=== PATIENT | female | born 1985 | race Caucasian/White ===

== ENCOUNTER 2020-09-18 16:30 | Emergency (ER) | payer SELFPAY ==
[2020-09-18 17:04] VITALS: BP 110/66; PULSE 72; RESP 20; TEMP 36.6; O2SAT 100
--- NOTE | 2020-09-18 17:16 | ED.FEMALEGU ---
HPI - Female Genitourinary General Chief complaint: Urogenital-Female Stated complaint: uti Time Seen by Provider: 09/18/20 17:18 Source: patient and RN notes reviewed Mode of arrival: ambulatory Limitations: no limitations History of Present Illness HPI Narrative: 35 year old female who presents to [facility] care with complaints of burning, pain, urgency, perineal and suprapubic pressure with strong urine odor which started this morning. Patient denies any known fevers, chills or sweats, denies any nausea or vomiting or diarrhea. Patient has some lower abdomen and perineal pressure, denies any flank pain. Patient denies any perineal discharge or any itchy. MD elicited complaint: dysuria, UTI and other (perineal pressure) Pertinent past history: other (past UTI's) Onset (ago): day(s) (1) Location of symptoms: perineum Severity: moderate Female Urogenital Radiation: Non-Radiating Severity scale (1-10): 5 Quality of pain: cramping and dull Consistency: constant Vaginal discharge: none Vaginal bleeding: none Urinary symptoms: Dysuria Associated symptoms: abdominal pain (lower abdomen and perineal pressure) Sexual activity: No Patient : No Date of Last Menstrual Period: 09/12/20 Related Data Allergies Allergy/AdvReac Type Severity Reaction Status Date / Time amoxicillin Allergy Unknown RASH Verified 12/16/18 12:23 Review of Systems Review of Systems: Narrative: CONSTITUTIONAL: Denies fever, chills, or sweats. EYES: Denies visual changes, redness, or discharge. ENT: Denies rhinorrhea, congestion, sore throat, or otalgia. CARDIOVASCULAR: Denies chest pain, palpitations, or edema. RESPIRATORY: Denies cough or dyspnea. GASTROINTESTINAL:Reports lower abdomen and perineal pressure,no nausea, vomiting, or diarrhea. GENITOURINARY: Positive dysuria or hematuria. SKIN: Denies rash or itching. MUSCULOSKELETAL: Denies back pain, joint pain, or myalgia. NEUROLOGIC: Denies headache, numbness, or weakness. PSYCHIATRIC: Denies anxiety or depression. All systems reviewed & are unremarkable except as noted in HPI and below PMFSH Past Medical History Medical History (Updated 09/19/20 @ 16:10 by Deepali Boland NP) Gestational diabetes Pancreatitis UTI (urinary tract infection) Surgical History Surgical History (Updated 09/18/20 @ 17:29 by Deepali Boland NP) Previous section x2 Family History Family History Mother COPD (chronic obstructive pulmonary disease) case management patient Father Hypertension Grandparent FH: stomach cancer Sibling Endometriosis Social History Social History (Updated 09/18/20 @ 17:31 by Deepali Boland NP) Smoking status: Former smoker Alcohol intake: current Alcohol use details: RARE Substance use: never Living arrangements: with family Gender identity (if verbalized by the patient): Female Comments At time of signature, agree with nursing past medical, surgical, social and family history. There is no relevant family history pertinent to the presenting complaint Exam Narrative: Exam Narrative: GENERAL: Well-appearing, well-nourished, and in no acute distress. HEAD: Normocephalic, atraumatic. EYES: PERRLA and EOMI. ENT: Nares clear, no rhinorrhea or epistaxis. Mucous membranes moist.TM's normal with good light reflex, throat pink with no lesions or exudates or tonsil enlargement NECK: Supple.no lymphadenopathy CHEST: Clear to auscultation. No respiratory distress.SAO2 100% on room air HEART: Regular rate and rhythm. No murmur heard. Normal peripheral pulses. ABDOMEN: Soft, tender suprapubic area of abdomen, negative McBurney point tenderness, nondistended, normal active bowel sounds.No flank pain on exam. EXTREMITIES: Normal range of motion. No edema. SKIN: Warm, dry, no rash. NEURO: No focal deficits. Alert and oriented x3. Course Vital Signs Vital signs: Vital Signs Temperature 36.6 C 04
== END 2020-09-18 17:45 | disposition home or self-care (01) ==
PROVIDERS: Emergency Provider Registered Nurse
DX: N39.0 Urinary tract infection, site not specified (principal); Z87.891 Personal history of nicotine dependence
CPT/HCPCS: 81003; 87077; 87086; 87088; 87186; 99213; G0463

== ENCOUNTER 2022-01-18 14:20 | Emergency (ER) | payer SELFPAY ==
[2022-01-18] VITALS (15 sets, daily range): BP systolic 110–140; BP diastolic 67–88; PULSE 58–73; RESP 14–18; TEMP 36.7; O2SAT 100
--- NOTE | ~2022-01-18 | CT_ITS ---
EXAMINATION: CT abdomen pelvis w con DATE: 01/18/2022 15:24 INDICATION: RUQ pain TECHNIQUE: Computed tomography (CT) of the abdomen and pelvis was performed with 100 mL Omnipaque-350 intravenous contrast. Automated exposure control and iterative reconstruction technique were employe d. The dose-length product was 228.85 mGy-cm. COMPARISON: 11/19/2007. FINDINGS: Lower thorax: Unremarkable Liver: Normal. Biliary/Gallbladder: Mild wall edema and mucosal hyperemia. No bile duct dilation. Pancreas: No mass or duct dilation. Spleen: Normal. Adrenals:No mass. Kidneys: No mass, stone, or hydronephrosis. GI tract: Distal gastric wall edema, possibly reactive or related to gastritis. No small or large bow el dilation. Normal appendix. Mesentery/Peritoneum: No ascites, mass, or free air. Retroperitoneum: No mass. Pelvis: Pelvic organs are within normal limits. Soft Tissues: Soft tissues and body wall unremarkable. Bones: No acute osseous finding. IMPRESSION: Mild gallbladder inflammation may reflect mild/early cholecystitis context. No other acute finding in the abdomen or pelvis. Reviewed, dictated and finalized at location K.
--- NOTE | ~2022-01-18 | US_ITS ---
EXAMINATION: US abdomen limited DATE: 01/18/2022 17:05 INDICATION: Rule out cholecystitis. TECHNIQUE: Multiple grayscale and Doppler ultrasound images of the abdomen were obtained. COMPARISON: CT A/P same date. FINDINGS: Visualized pancreas is normal. The liver is normal with normal echogenicity and echotextur e. Normal hepatopetal flow in the main portal vein. Normal size gallbladder with mild wall thickening up to 4 mm and sludge. The normal common bile duct measures 6 mm. There was no sonographic Marcos si gn, but this may be confounded by pain medication. IMPRESSION: 1. Gallbladder sludge and mild wall thickening, may represent acute cholecystitis in the appropriate clinical context. 2. Steatosis Reviewed, dictated and finalized at location K. IMPRESSION: 1. Gallbladder sludge and mild wall thickening, may represent acute cholecystit is in the appropriate clinical context. 2. Steatosis
--- NOTE | 2022-01-18 14:31 | ED.ABDPAIN ---
HPI - Abdominal Pain General Chief Complaint: Abdominal Pain Stated Complaint: Abdominal Pain Time Seen by Provider: 01/18/22 14:31 Source: patient Mode of arrival: ambulatory Limitations: no limitations History of Present Illness HPI narrative: 36 years old white female came by private car complaining of right upper quadrant pain that started last night associated with severe vomiting and radiation to the back. The pain is intense, was constant for 8 hours until she got to sleep. Work-up in the pain was still there. She denies any fever, chills, vomiting, diarrhea, constipation, started her menstrual cycle yesterday. History of section x2, she denies any other abdominal surgery. Patient does not take medicine at home, does not smoke or drink or uses drugs Related Data Allergies Allergy/AdvReac Type Severity Reaction Status Date / Time amoxicillin Allergy Unknown RASH Verified 01/18/22 14:42 Review of Systems Review of Systems: All systems reviewed & are unremarkable except as noted in HPI and below PMFSH Past Medical History Medical History Gestational diabetes Pancreatitis UTI (urinary tract infection) Surgical History Surgical History Previous section x2 Family History Family History Mother COPD (chronic obstructive pulmonary disease) case management patient Father Hypertension Grandparent FH: stomach cancer Sibling Endometriosis Social History Social History Smoking status: Former smoker Alcohol intake: current Alcohol use details: RARE Substance use: never Gender identity (if verbalized by the patient): Female Exam Narrative: General appearance: Well-developed, well-nourished Skin: Normal color Head: Normocephalic, nontraumatic Eyes: Clear conjunctiva ENT: Oropharynx normal, ears normal, nose normal Neck: Supple, nontender Chest and respiratory: Airway patent, no respiratory distress, no accessory muscle use Heart: Regular rate/rhythm Abdomen: Soft, nontender, no organomegaly, quiet bowel sounds Vascular: Normal peripheral pulses, normal capillary refill. Musculoskeletal: Normal range of motion, nontender back Neurologic: Alert and oriented ?3, COGENERATION OPERATOR is normal as tested, no gross motor deficit Course Course Emergency Course: Patient presents with right upper quadrant pain, and physical exam was not significant. Work-up showed possible mild cholecystitis versus gastritis. Currently patient feeling much better, almost asymptomatic. Will be discharged on PPI, to call Dr. Gottlieb tomorrow for appointment. The above plan was discussed with Dr. Gottlieb Consultations Consultation #1: Dr. Gottlieb Patient can go home, call office tomorrow for appointment Date: 01/18/22 Time: 17:57 Vital Signs Vital signs: Vital Signs Temperature 36.7 C 01/18/22 14:23 Pulse Rate 62 01/18/22 14:23 Respiratory Rate 14 01/18/22 14:23 Blood Pressure 138/88 01/18/22 14:23 Pulse Oximetry 100 01/18/22 14:23 Oxygen Delivery Room Air 01/18/22 14:23 Temperature 36.7 C 01/18/22 14:23 Pulse Rate 73 01/18/22 14:31 Respiratory Rate 15 01/18/22 14:31 Blood Pressure 118/67 01/18/22 14:31 Pulse Oximetry 100 01/18/22 14:31 Oxygen Delivery Room Air 01/18/22 14:31 MDM - Abdominal Pain Lab Data Result diagrams: 01/18/22 14:32 01/18/22 14:32 Labs: Lab Results 01/18/22 01/18/22 01/18/22 Range/Units 14:32 14:32 15:05 WBC 5.8
[2022-01-18 14:41] LABS: Basophils Percent Auto 0.5 % (0.2-1.2); Eosinophils Absolute Auto 0.1 K/mm3 (0-0.3); Eosinophils Percent Auto 0.9 % (0-4.4); Hematocrit 36.6 % (37.0-47.0); Hemoglobin 11.7 g/dL (12.0-15.0); Immature Granulocyte Absolute 0.02 K/mm3 (0.00-0.031); Immature Granulocyte Percent A 0.3 % (0-0.5); Lymphocytes Absolute Auto 1.62 K/mm3 (0.9-3.2); Mean Corpuscular Hemoglobin 28.5 pg (26-34); Mean Corpuscular Volume 89.3 fl (80-100); Mean Platelet Volume 10.7 fl (7.4-10.4); Monocytes Absolute Auto 0.5 K/mm3 (0.1-0.6); Neutrophils Absolute Auto 3.6 K/mm3 (1.3-6.7); Neutrophils Percent Auto 61.3 % (45.5-73.1); Platelet Count Result 202 k/mm3 (150-375); Red Cell Distribution Width 13.2 % (11.5-14.5); White Blood Count 5.8 K/mm3 (4.5-10.0)
[2022-01-18] MEDS: ONDANSETRON INJ 4 MG/2 ML VIAL IV PUSH (14:44)
[2022-01-18] MEDS: HYDROmorphone HCL INJ (*CRX) 1 MG/ML SYR 0.5 MG IV PUSH (14:44)
[2022-01-18] MEDS: SODIUM CHLORIDE 0.9% IV 1,000 ML 999 ML IV CONT (14:45)
[2022-01-18 14:51] LABS: Alanine Aminotransferase 16 U/L (6-35); Albumin Level 4.5 g/dL (3.5-5.1); Alkaline Phosphatase 58 U/L (38-126); Anion Gap 11 mmol/L (8-16); Aspartate Amino Transferase 27 U/L (14-36); Bilirubin,Total 0.6 mg/dL (0.2-1.3); Blood Urea Nitrogen 9 mg/dL (7-17); Calcium 9.4 mg/dL (8.4-10.2); Carbon Dioxide 26 mmol/L (22-30); Chloride 102 mmol/L (98-107); Estimated CRCL calculation 84 ml/min; Estimated Glomerular Filt Rate > 60; Glucose 89 mg/dL (65-110); Lipase 140 U/L (23-300); Potassium 3.7 mmol/L (3.4-5.0); Sodium 139 mmol/L (137-145)
[2022-01-18 15:12] LABS: Appearance Urine Clear (Clear); Bilirubin Urine Negative (Negative); Blood Urine 2+ (Negative); Color Urine Yellow (Yellow); Glucose Urine UA Negative (Negative); Ketones Urine Negative (Negative); Leukocyte Esterase Ur Trace LEU/UL (Negative); Nitrate Urine Negative (Negative); Protein Urine Negative (Negative); Urobilinogen Urine 0.2 mg/dL (<2.0)
[2022-01-18 15:20] LABS: Mucus Urine Rare /lpf; Squamous Epithelial Cell Urine Few /hpf (Few); WBC Urine 0-3 /hpf
[2022-01-18 15:26] LABS: Add Urine Microscopic? YES
== END 2022-01-18 18:25 | disposition home or self-care (01) ==
PROVIDERS: Emergency Provider Emergency Medicine
DX: R10.11 Right upper quadrant pain (principal); Z87.440 Personal history of urinary (tract) infections; Z87.891 Personal history of nicotine dependence; R93.2 Abnormal findings on diagnostic imaging of liver and biliary tract; E88.89 Other specified metabolic disorders
CPT/HCPCS: 36415; 74177; 76705; 80053; 81001; 81025; 83690; 85025; 96361; 96374; 96375; 99284; J1170; J2405; J7030; Q9967

== ENCOUNTER 2022-01-24 11:52 | Emergency (ER) | payer SELFPAY ==
[2022-01-24 11:59] VITALS: BP 119/79; PULSE 76; RESP 14; TEMP 37.4; O2SAT 100
--- NOTE | 2022-01-24 12:07 | ED.URI ---
HPI - URI/Sore Throat General Chief Complaint: Upper Respiratory Infection Stated Complaint: sore throat,fever Time Seen by Provider: 01/24/22 12:07 Source: patient and RN notes reviewed Mode of arrival: ambulatory Limitations: no limitations History of Present Illness HPI Narrative: 36-year-old female presented for complaint of headache, body aches, sinus pressure/congestion, sore throat, nausea, fever/chills. Onset 4 days ago. Endorses her son had similar symptoms recently. She denies cough, shortness of breath or wheezing. Endorses fever to 102. Taking Tylenol and ibuprofen as needed for symptoms. She is not vaccinated for covid. MD elicited complaint: cough Related Data Allergies Allergy/AdvReac Type Severity Reaction Status Date / Time amoxicillin Allergy Unknown RASH Verified 01/24/22 12:07 Review of Systems Review of Systems: CONSTITUTIONAL: Endorses malaise, chills, sweats, fever EYES: Denies visual changes, redness, or discharge ENT: Reports rhinorrhea, congestion, sinus pain, otalgia, sore throat CARDIOVASCULAR: Denies chest pain, palpitations, edema RESPIRATORY: Reports cough, post nasal drainage. Denies dyspnea GASTROINTESTINAL: Denies abdominal pain, vomiting, diarrhea SKIN: Denies rash or itching MUSCULOSKELETAL: Endorses myalgia PMFSH Past Medical History Medical History Gestational diabetes Pancreatitis UTI (urinary tract infection) Surgical History Surgical History Previous section x2 Family History Family History Mother COPD (chronic obstructive pulmonary disease) case management patient Father Hypertension Grandparent FH: stomach cancer Sibling Endometriosis Social History Social History Smoking status: Former smoker Alcohol intake: current Alcohol use details: RARE Substance use: never Gender identity (if verbalized by the patient): Female Exam Narrative: GENERAL: Ill-appearing, nontoxic EYES: conjunctivae clear ENT: Mucous membranes moist. CHEST: Clear to auscultation, breath sounds equal. No wheezing, rhonchi, rales, or stridor. No respiratory distress, speaks in full sentences. HEART: Regular rate and rhythm. No murmur heard. SKIN: Warm, dry, no rash. NEURO: Alert and oriented x3. PSYCH: Normal mood and affect Course Course Emergency Course: Patient is aware of diagnosis, understands and agrees to treatment plan. Anticipatory guidance given. Patient agrees to follow-up as directed and is aware of reasons to seek care at the emergency department. Portions of this record may have been created with voice recognition software Level of Care: Express Care Visit Vital Signs Vital signs: Vital Signs Temperature 99.4 F 01/24/22 11:59 Pulse Rate 76 01/24/22 11:59 Respiratory Rate 14 01/24/22 11:59 Blood Pressure 119/79 01/24/22 11:59 Pulse Oximetry 100 01/24/22 11:59 Oxygen Delivery Room Air 01/24/22 11:59 Temperature 99.4 F 01/24/22 11:59 Pulse Rate 76 01/24/22 11:59 Respiratory Rate 14 01/24/22 11:59 Blood Pressure 119/79 01/24/22 11:59 Pulse Oximetry 100 01/24/22 11:59 Oxygen Delivery Room Air 01/24/22 11:59 reviewed MDM - URI/Sore Throat MDM Narrative Medical decision making narrative: Advised supportive measures and signs/symptoms to go to the ER. Pt is appropriate for outpt treatment and f/u. Differential Diagnosis Differential diagnosis: Likely upper respiratory infection, sinusitis and viral infection Discharge Plan Discharge Patient Disposition: Home, Self-Care Condition: Stable Additional Instructions: Rapid strep swab was negative today You will be notified in a few days if the culture comes back positive for strep, and appropriate antibiotics will be
== END 2022-01-24 12:23 | disposition home or self-care (01) ==
PROVIDERS: Emergency Provider Nurse Practitioner Family
DX: U07.1 COVID-19 (principal); Z87.891 Personal history of nicotine dependence
CPT/HCPCS: 87081; 87426; 87880; 99213; C9803; G0463

== ENCOUNTER 2022-11-18 13:04 | Outpatient (CLI) | payer OTHER, SELFPAY ==
[2022-11-18 13:15] LABS: Basophils Percent Auto 0.5 % (0.2-1.2); Eosinophils Absolute Auto 0.1 K/mm3 (0-0.3); Eosinophils Percent Auto 1.6 % (0-4.4); Hemoglobin 11.5 g/dL (12.0-15.0); Immature Granulocyte Absolute 0.01 K/mm3 (0.00-0.031); Immature Granulocyte Percent A 0.2 % (0-0.5); Lymphocytes Absolute Auto 1.67 K/mm3 (0.9-3.2); Mean Corpuscular HGB Conc 32.9 g/dl (32-36); Mean Corpuscular Hemoglobin 28.5 pg (26-34); Mean Corpuscular Volume 86.8 fl (80-100); Mean Platelet Volume 10.5 fl (7.4-10.4); Monocytes Absolute Auto 0.6 K/mm3 (0.1-0.6); Monocytes Percent Auto 9.5 % (2.6-8.5); Neutrophils Absolute Auto 3.4 K/mm3 (1.3-6.7); Neutrophils Percent Auto 59.2 % (45.5-73.1); Platelet Count Result 228 k/mm3 (150-375); Red Blood Count 4.03 M/mm3 (4.2-5.4); Red Cell Distribution Width 13.2 % (11.5-14.5); White Blood Count 5.8 K/mm3 (4.5-10.0)
[2022-11-18 13:41] LABS: Iron 43 ug/dL (37-170)
[2022-11-18 13:48] LABS: Alanine Aminotransferase 33 U/L (6-35); Albumin Level 4.5 g/dL (3.5-5.1); Alkaline Phosphatase 44 U/L (38-126); Anion Gap 5 mmol/L (8-16); Aspartate Amino Transferase 40 U/L (14-36); Bilirubin,Total 0.4 mg/dL (0.2-1.3); Blood Urea Nitrogen 12 mg/dL (7-17); Calcium 9.2 mg/dL (8.4-10.2); Carbon Dioxide 29 mmol/L (22-30); Chloride 103 mmol/L (98-107); Estimated Glomerular Filt Rate > 60; Glucose 87 mg/dL (65-110); Potassium 4.1 mmol/L (3.4-5.0); Sodium 137 mmol/L (137-145)
[2022-11-18 13:50] LABS: Percent Iron Saturation 10 % (20-50)
[2022-11-18 14:19] LABS: Ferritin 4.55 ng/mL (6.24-137)
[2022-11-18 14:52] LABS: Folic Acid 13.3 ng/mL (2.76->20)
== END 2022-11-18 13:05 | disposition home or self-care (01) ==
LOC: ANHLAB 13:06
PROVIDERS: Visit Provider Internal Medicine Hematology & Oncology
DX: D64.9 Anemia, unspecified (principal)
CPT/HCPCS: 36415; 80053; 82607; 82728; 82746; 83540; 83550; 85025

== ENCOUNTER 2023-05-05 18:43 | Emergency (ER) | payer SELFPAY ==
--- NOTE | ~2023-05-05 | XR_ITS ---
EXAMINATION: XR chest 2V DATE: 05/05/2023 19:13 INDICATION: Cough TECHNIQUE: PA and lateral views of the chest were obtained. COMPARISON: None FINDINGS: The lungs are clear with no focal airspace opacities, pulmonary edema, pleural effusion or pneumothor ax. Heart size is normal. There is a foreign body likely external to the patient which projects over the region of the ortiz on the frontal projection but which is absent on the subsequent lateral proj ection. Mild thoracic spondylosis. IMPRESSION: 1. No acute cardiopulmonary disease. Reviewed, dictated and finalized at location A. LATOR ATTENDANT
[2023-05-05 18:50] VITALS: BP 152/93; PULSE 77; RESP 16; TEMP 36.7; O2SAT 100
--- NOTE | 2023-05-05 19:04 | ED.URI ---
HPI - URI/Sore Throat General Chief Complaint: Upper Respiratory Infection Stated Complaint: Cough;Wheezing;Back Pain/Numbness Time Seen by Provider: 05/05/23 18:55 Source: patient and RN notes reviewed Mode of arrival: ambulatory Limitations: no limitations History of Present Illness HPI Narrative: Patient presents today complaining of a 5 day history of cough that has been worsening since onset with wheezing, headache, shortness of breath. Denies congestion, rhinorrhea, sore throat, fever. Denies history of asthma or COPD. She has tried no medication for symptoms prior to arrival. Patient is a former smoker, but quit 7 years ago. States cough is keeping her awake at night. Related Data Allergies Allergy/AdvReac Type Severity Reaction Status Date / Time amoxicillin Allergy Unknown RASH Verified 05/05/23 18:49 Review of Systems Review of Systems: CONSTITUTIONAL: Denies body aches, fever, chills, or sweats. EYES: Denies visual changes, redness, or discharge. ENT: Denies rhinorrhea, congestion, sore throat, or otalgia. CARDIOVASCULAR: Denies chest pain, palpitations, or edema. RESPIRATORY: + cough, shortness of breath, wheezing GASTROINTESTINAL: Denies abdominal pain, nausea, vomiting, or diarrhea. GENITOURINARY: Denies dysuria or hematuria. SKIN: Denies rash, itching, or wounds. MUSCULOSKELETAL: Denies back pain, joint pain, or myalgia. NEUROLOGIC: Denies numbness, tingling, or weakness.+ headache PSYCH: Denies depression or anxiety. [facility] Past Medical History Medical History Gestational diabetes Pancreatitis UTI (urinary tract infection) Surgical History Surgical History Previous section x2 Family History Family History Mother COPD (chronic obstructive pulmonary disease) case management patient Father Hypertension Grandparent FH: stomach cancer Sibling Endometriosis Social History Social History Smoking status: Former smoker Alcohol intake: current Alcohol use details: RARE Substance use: never Living arrangements: with family Gender identity (if verbalized by the patient): Female Comments At time of signature, I have reviewed and agree with nursing past medical, surgical, social and family history unless otherwise noted. Please see nursing chart for further information. There is no relevant family history pertinent to the presenting complaint Exam Narrative: GENERAL: Well-appearing, well-nourished, and in no acute distress. HEAD: Normocephalic, atraumatic. EYES: EOMI. No redness or drainage. Conjunctivae normal. ENT: Mucous membranes pink and moist. Nares clear. No rhinorrhea. TMs normal bilaterally. Throat normal. Uvula midline. NECK: Normal AROM. Supple. No lymphadenopathy. CHEST: No respiratory distress. Inspiratory wheezing in the bilateral upper and right lower lobe HEART: Regular rate and rhythm. No murmur appreciated. EXTREMITIES: Normal range of motion. No edema. SKIN: Warm, dry, no rash. Capillary refill normal. Normal skin turgor. NEURO: No focal deficits. Alert and oriented x3. Gait steady. PSYCH: Normal affect. No signs of depression or anxiety. Course Course Level of Care: Express Care Visit Vital Signs Vital signs: Vital Signs Temperature 98.1 F 05/05/23 18:50 Pulse Rate 77 05/05/23 18:50 Respiratory Rate 16 05/05/23 18:50 Blood Pressure 152/93 H 05/05/23 18:50 Pulse Oximetry 100 05/05/23 18:50 Temperature 98.1 F 05/05/23 18:50 Pulse Rate 77 05/05/23 18:50 Respiratory Rate 16 05/05/23 18:50 Blood Pressure 152/93 H 05/05/23 18:50 Pulse Oximetry 100 05/05/23 18:50 Reviewed MDM - URI/Sore Throat MDM Narrative Medical decision making narrative: Ches
== END 2023-05-05 19:49 | disposition home or self-care (01) ==
PROVIDERS: Emergency Provider Nurse Practitioner
DX: J22 Unspecified acute lower respiratory infection (principal); Z87.891 Personal history of nicotine dependence
CPT/HCPCS: 71046; 99213; G0463